=== PATIENT | male | born 1995 | race Caucasian/White ===

== ENCOUNTER 2024-05-29 09:40 | Emergency (ER) | payer OTHER, SELFPAY ==
[2024-05-29 09:40] VITALS: BP 146/83; PULSE 95; RESP 16; TEMP 36.7; O2SAT 97; BMI 28.1
--- NOTE | 2024-05-29 10:05 | EX.ED.GENINJ ---
HPI History of Present Illness Chief Complaint: Head Injury Detail of Chief Complaint: Seizure that fell with a forehead laceration. Informant: patient and parent Onset/Context/Timing Onset: Today and Hours Mechanism/Context: Blunt Injury and Fall Current Severity: Mild Maximum Severity: Mild Associated Symptoms Associated Symptoms: Negative for Parasthesias, Weakness, Loss of function or Inability to ambulate Length of loss of consciousness: No LOC. Narrative Narrative: 29-year-old [facility] male history of seizures or since he was a child. Currently takes Depakote twice a day and Lamictal twice a day. Had a seizure last night around midnight fell and struck his head on the linoleum floor causing about a 5 inch forehead laceration along the midline. He is back to his baseline. Mom thought it need to be so brought him in today. He does not get vaccinated his tetanus is not up-to-date. She does not want him vaccinated. No recent illness. No nausea or vomiting. Mom states he is at his baseline. Tetanus Immunization: >10 years Prior similar symptoms: Yes Recent Illness/Hospitalization: No [facility] Medical History (Updated 05/29/24 @ 11:[address] Diego Ward MD) Seizure Home Medications ?Medication ?Instructions ?Recorded ?Last Taken ?Type divalproex 500 mg tablet,extended 1,000 mg PO BID 05/29/24 Unknown History release 24 hr lamotrigine 25 mg tablet 50 mg PO Q12H 05/29/24 Unknown History Allergy/AdvReac Type Severity Reaction Status Date / Time phenytoin (From Dilantin) Allergy Intermediate Rash Verified 05/29/24 09:42 Social History Smoking Status: Never smoker ROS ROS ED ROS Narrative Denies recent illness. Constitutional Constitutional ED: Denies chills Eyes Eyes: Denies blurry vision ENT ENT ED: Denies ear pain Cardiovascular Cardiovascular: Denies chest pain Respiratory/Chest Respiratory/Chest: Denies cough or dyspnea Gastrointestinal Gastrointestinal: Denies abdominal pain Genitourinary Genitourinary ED: Denies dysuria or hematuria Musculoskeletal Musculoskeletal: Denies arthralgias or back pain Integumentary Denies abscess Neurologic Neurologic: Denies headache(s) Psychiatric Psychiatric: Denies anxiety or depression Endocrine Endocrinology: Denies cold intolerance Hematologic/Lymphatic Hematologic/Lymphatic: Denies easy bleeding Allergic/Immunologic Allergic/Immunologic ED: Denies mouth swelling EXAM Physical Exam Narrative Exam Narrative: Well-appearing 29-year-old male. Vital signs stable afebrile. H EENT exam is round reactive light. There is no hematoma or tenderness to his scalp. There is a 5 to 6 inch irregular laceration down the mid portion of his forehead. Currently there is no active bleeding. Involves the skin and subcu tissue. There is no signs of infection. This is about a 10-hour old wound. It was round reactive light. No facial tenderness. Neck nontender. Lungs clear to auscultation bilaterally. Heart regular rhythm no murmur rate in 90s. Chest wall and ribs nontender. Abdomen soft nontender. Back nontender. Pelvic girdle intact. Moving all 4 extremities. Normal range of motion. Nontender. No deformity. 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 Normal dorsi plantarflexion. Back nontender. Neurologically is awake and alert. Answering questions and following commands. GCS is 15. Const Vital Signs: 05/29/24 09:40 05/29/24 10:12 Temperature 98.0 F Temperature Source Temporal Pulse Rate 95 Respiratory Rate 16 Respiratory Effort Normal Non-Labored Respiratory Depth Normal Respiratory Pattern Normal Blood Pressure 146/83 H Blood Pressure Mean 104 Pulse Ox 97 Oxygen Delivery Method Room Air Positive well nourished and well developed; Negative for obese, cachectic, contractures or unkempt General Appearance ED: well developed and NAD; Negative for unkempt, cachectic or contractures Nutritional Appearance: Negative for cachectic or obese HEENT HEENT Narrative: Mid forehead linear laceration irregular on the midportion of his forehead approximately 5 to 6 inches in length. Will need repaired. Currently no active bleeding. No signs of infection or foreign body. Involves the skin and subcu tissue down the almost the skull. trauma; Negative for atraumatic Eyes PERRL and EOMs intact bilaterally Neck full ROM General: Negative for tenderness Chest Wall inspection of chest normal and palpation of chest normal Breast/Axilla Inspection: Negative for other Resp normal respiratory effort and clear to auscultation bilaterally Effort and Inspection: Negative for pain with movement Auscultation: Negative for rales, rhonchi, wheezes or diminished lung sounds Cardio regular rhythm, S1 normal heart sound, S2 normal heart sound and no murmurs Jugular Venous Distention: Negative for other Rate: regular rate GI normal to inspection, nondistended, normoactive bowel sounds, non-tender, non-distended and no masses Inspection: Negative for abdominal distention Auscultation: normoactive bowel sounds Palpation: soft; Negative for tender, guarding or rebound tenderness present Back/Spine normal to inspection and no thoracic nor lumbar tenderness General Back: Negative for CVA tenderness Thoracic Spine / Upper Back: Negative for thoracic spinal tenderness Extremity normal to inspection and full ROM General Extremety ED: Negative for deformity, edema or tenderness General Extremity: Negative for deformity or edema Neuro CN's II-XII intact bilaterally, moves all extremities, no focal motor deficits and no sensory deficits noted Low Coma Scale: document GCS findings Spontaneous Obeys Commands Oriented 15 Sensorium / Orientation: alert, oriented to person and oriented to place Motor Exam: strength 5/5 throughout Psych mental status grossly normal and thought process normal Appearance: Negative for unkempt Attitude: No agitated Mood & Affect: Negative for depressed, anxious or tearful Skin no rashes or lesions noted, No no wounds, skin turgor normal and no jaundice Skin Narrative: Forehead laceration. Rashes: No rashes noted PROC Procedures Lacerations Mid forehead laceration repair:: Length: 6 in Depth: Sub Q Shape: Linear Prep: Shure-Clens Laceration repair: Irrigated, Lidocaine, Local and Skin sutures Number of Sutures/Dellroy: 12 Suture Information: Ethilon, Simple and 5-0 MDM MDM MDM Narrative Medical decision making narrative: 29-year-old [facility] male not vaccinated. Mom does not want a tetanus given. Has a 5 to 6 inch linear laceration mid forehead from a seizure and fall last night. This will be repaired. Mom is comfortable with suture repair. It will be locally anesthetized with let and lidocaine. Cleaned, washed with saline and explored. Closed using simple Ethilon sutures. Brief exam patient doing well at 11:50 AM. I was able to clean, irrigate, explore suture repair for laceration. 12 simple interrupted 5-0 Ethilon sutures. Mom was instructed on wound care and follow-up and head injury instructions as needed. History & Record Review Discussion w/independent historian: Patient and Family Discharge Plan Triage Chief Complaint: Head Injury ED Provider: Diego Ward Dx/Rx/DC Orders Clinical Impression: Seizure, Fall, Forehead laceration, Head injury Instructions: ED Head Injury (Adult), ED Laceration, All Closures Prescriptions: No Action divalproex 500 mg tablet extended release 24 hr 1,000 mg PO BID Patient Comments: TAKE TWO TABLETS BY MOUTH TWICE DAILY lamotrigine 25 mg tablet 50 mg PO Q12H Patient Comments: GIVE TWO TABLETS BY MOUTH ONCE DAILY FOR TWO WEEKS THEN INCREASE TO TWO TABLETS TWICE DAILY Primary Care Provider: Care Physician,No Primary Referrals: NOT,DEFINED [Non-Staff] - Activity Restrictions/Additional Instructions: Clean daily gently with soap and water or peroxide and water. Dry carefully. Stitches out in 10 days. Return if severe headache, vomiting or not acting right. Apply antibiotic ointment daily. Motrin and Tylenol for pain Print Language: Korean Disposition Disposition: Home, Self Care
[2024-05-29] MEDS: Lidocaine/Epi/Tetracaine 50 ML 1 APPLIC TOPICAL (10:11)
[2024-05-29] MEDS: Lidocaine 1% (20 ml mdv) 20 ML Vial INFILT (10:11)
[2024-05-29 11:57] VITALS: BP 129/78; PULSE 89; RESP 16; O2SAT 97
== END 2024-05-29 11:58 | disposition home or self-care (01) ==
PROVIDERS: Emergency Provider Emergency Medicine; Visit Provider Emergency Medicine
DX: S01.81XA Laceration without foreign body of other part of head, initial encounter (principal); R56.9 Unspecified convulsions; W01.198A Fall on same level from slipping, tripping and stumbling with subsequent striking against other object, initial encounter; Z28.39 Other underimmunization status; Z28.82 Immunization not carried out because of caregiver refusal
CPT/HCPCS: 12016; 99283

== ENCOUNTER 2024-07-13 18:28 | Emergency (ER) | payer OTHER, SELFPAY ==
[2024-07-13] VITALS (11 sets, daily range): BP systolic 110–182; BP diastolic 64–112; PULSE 58–88; RESP 16–40; TEMP 35.9–36.6; O2SAT 71–95
--- NOTE | 2024-07-13 18:43 | RAD_ITS ---
STUDY: X-RAY CHEST REASON FOR EXAM: Male, 29 years old. intubation TECHNIQUE: AP portable COMPARISON: None. FINDINGS: Diffuse right perihilar infiltrate or unilateral pulmonary edema. There is no demonstrated pleural abnormality. Normal size heart. Normal mediastinum and tico. Normal visualized pulmonary arteries. Normal visualized aortic arch and descending thoracic aorta. Endotracheal tube noted 4.8 cm proximal to marybel Normal visualized thoracic spine. Normal visualized ribs, clavicles, and shoulders. Nasogastric tube is present in the stomach although the distal tip cannot be localized There is no demonstrated abnormality of the visualized soft tissue structures of the upper abdomen. RAD/Chest 1 View IMPRESSION: Diffuse right perihilar infiltrates or bilateral pulmonary edema Electronically Signed: Froylan Anderson MD at 19:37 EDT ,
--- NOTE | 2024-07-13 18:44 | CT_ITS ---
STUDY: CT BRAIN WITHOUT CONTRAST REASON FOR EXAM: Male, 29 years old. Unresponsive RADIATION DOSAGE (If Supplied By Facility): CTDIvol = ( 44.99 ) mGy, DLP = ( 866.41 ) mGycm TECHNIQUE: Transaxial CT imaging of the brain was performed without administration of intravenous contrast material. Individualized dose optimization techniques were used for this CT. COMPARISON: No relevant priors. FINDINGS: Mild soft tissue swelling forehead without associated acute skull fracture. Normal size ventricles and extra-axial spaces for the patient''s age. Normal white matter tracts of the cerebral hemispheres. Normal basal ganglia and thalami. Normal brainstem. Normal cerebellum. There is no intracranial hemorrhage. There are no findings of an acute ischemic infarction. Mild mucosal thickening of left maxillary and sphenoid sinuses CT/Brain/Head without Contrast IMPRESSION: Mild soft tissue swelling without skull fracture or acute intracranial bleed. Electronically Signed: Froylan Anderson MD at 20:20 EDT ,
--- NOTE | 2024-07-13 18:45 | EKG12_ITS ---
Test Reason : DYSRHYTHMIA Blood Pressure : / mmHG Vent. Rate : 073 BPM Atrial Rate : 073 BPM P-R Int : 204 ms QRS Dur : 100 ms QT Int : 400 ms P-R-T Axes : 057 071 052 degrees QTc Int : 440 ms Normal sinus rhythm Normal ECG Confirmed by Jose Daniel Cox ([id number]), editorial clerk KRUNAL BLAND ([id number]) on 07/17/2024 10:48:26 AM Referred By: Confirmed By:Jose Daniel Cox
[2024-07-13] MEDS: Propofol 10MG/Ml 1,000 MG/100 ML Bottle 6 MG CONT INF ×2 (18:47→21:45)
--- NOTE | 2024-07-13 18:47 | CT_ITS ---
We are attempting to reach an attending provider to discuss findings. An addendum with communication details will be sent when the communication is complete. STUDY: CT CERVICAL SPINE WITHOUT CONTRAST REASON FOR EXAM: Male, 29 years old. trauma RADIATION DOSAGE (If Supplied By Facility): CTDIvol = ( 28.47 ) mGy, DLP = ( 638.27 ) mGycm TECHNIQUE: High resolution transaxial imaging was performed without contrast material. Sagittal and coronal images were reconstructed. Individualized dose optimization techniques were used for this CT. COMPARISON: January 08, 2010 FINDINGS: Normal craniovertebral junction. Normal anterior atlantoaxial articulation. Normal odontoid process. Straightening of normal lordotic curvature. There appears to be fracture of the anterior inferior endplate of C4 on the right involving the anterior endplate spur demonstrating ill-defined cortical margins suggesting acute fracture best visualized on sequence #[id number] image 30 and 31 There also may be chronic posttraumatic changes involving the superior endplate of C6 C2-3: Normal endplates. Normal disc height and morphology. Normal central canal and intervertebral neuroforamina. C3-4: Normal endplates. Normal disc height and morphology. Normal central canal and intervertebral neuroforamina. C4-5: Anterior endplate spurring. Normal disc height and morphology. Normal central canal. Mild left neural foraminal stenosis secondary to bony hypertrophy C5-6: Anterior endplate spurring. Normal disc height and morphology. Normal central canal and intervertebral neuroforamina. C6-7: Narrowed disc space and minor endplate spurring. Normal central canal and intervertebral neuroforamina. C7-T1: Normal endplates. Normal disc height and morphology. Normal central canal and intervertebral neuroforamina. Normal visualized soft tissue structures. Incidental finding of patchy infiltrates in the upper lobes CT/Spine Cervical without Contras IMPRESSION: Advanced spondylosis for stated age. Suspected acute fracture of the anterior inferior endplate of C4 on the right involving the anterior endplate spur. Recommend clinical correlation and follow-up studies Electronically Signed: Froylan Anderson MD at 20:00 EDT ,
--- NOTE | 2024-07-13 19:00 | CT_ITS ---
STUDY: CT CHEST, ABDOMEN T PELVIS WITH CONTRAST REASON FOR EXAM: Male, 29 years old. Trauma RADIATION DOSAGE (If Supplied By Facility): CTDIvol = ( 28.47 ) mGy, DLP = ( 638.27 ) mGycm TECHNIQUE: Transaxial imaging was performed following intravenous administration of IV 100mL Isovue-370. Individualized dose optimization techniques were used for this CT. COMPARISON: No relevant priors. FINDINGS: CHEST Diffuse bilateral nodular infiltrates more severe on the right with more pronounced consolidation in the dependent portion of both upper lobes and lower lobes. There is no demonstrated pleural abnormality. Normal heart and pericardium. Normal mediastinum. Normal hilar regions. Normal unenhanced pulmonary arteries. Normal aorta arch and descending thoracic aorta. Dorsal spine demonstrates mild degenerative change. There is no acute fracture. ABDOMEN . Normal liver. Normal gallbladder and extrahepatic biliary system. Normal spleen. Normal pancreas. Normal bilateral adrenal glands. Normal right kidney. Normal left kidney. Nasogastric tube is seen in the stomach which demonstrates extensive retained secretions.. Normal small intestine. There is diffuse fecal retention seen throughout much of the colon. The appendix is visualized and appears normal. Normal abdominal aorta. Normal inferior vena cava. Normal retroperitoneum. Normal abdominal wall. Normal osseous structures. PELVIS Ryan catheter noted within the bladder which is incompletely distended, thick-walled and contains air likely iatrogenic Normal visualized small intestine. Normal visualized colon. There is no pelvic fluid. There is no pelvic lymphadenopathy or mass lesion. Normal visualized pelvic arteries. Normal abdominal wall. Normal osseous structures. CT/CT Chest, Abd, Pel w/Contrast IMPRESSION: Diffuse bilateral pulmonary nodular infiltrates with more pronounced consolidation in the lower lobes consistent with nonspecific ARDS Diffuse gastric distention with retained secretions containing nasogastric tube. No evidence for small bowel obstruction or other acute abnormality Electronically Signed: Froylan Anderson MD at 20:29 EDT ,
[2024-07-13 19:06] LABS: Hemoglobin 12.7 g/dL (13.0-16.5); Mean Corp Hgb Conc 30.2 g/dL (32-36); Mean Corpuscular Hgb 29.3 pg (27.0-32.0); Mean Corpuscular Volume 96.8 fL (80-94); Mean Platelet Vol. 9.8 fl (6.2-12.0); POSITIVE DIFFERENTIAL YES; Platelet Count 290 K/mm3 (150-450); RBC Distribution Width CV 13.2 % (11.6-14.6); RBC Distribution Width SD 46.3 fl (35.1-43.9); Red Blood Count 4.34 M/mm3 (4.6-6.2); White Blood Count 24.4 K/mm3 (4.4-11.0)
[2024-07-13 19:25] LABS: Alcohol, Blood (Medical)-Serum < 3.0 mg/dL
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
[2024-07-13] MEDS: Rocuronium Bromide 50 MG/5 ML Vial 90 MG IV (19:33)
[2024-07-13] MEDS: Etomidate 20 MG/10 ML Vial IV (19:33)
[2024-07-13 19:44] LABS: Mucous, Urine 0 SEEN /hpf (<or=2+); Squamous Epithelial Cells - UA 0 SEEN /hpf (0-5)
[2024-07-13] MEDS: Ipratropium/Albuterol Sulfate 3 ML AMPUL.NEB INHALATION (19:45)
[2024-07-13 19:50] LABS: Color, Urine Red (Yellow); Glucose, Dipstick Normal (Normal); Ketone-Dipstick 5 mg/dl (Negative); Leukocyte Esterase-Dipstick Negative /ul (Negative); Nitrite-Dipstick Negative (Negative); Occult Blood-Urine 250 /ul (Negative); Protein-Dipstick 500 mg/dl (Negative); Specific Gravity, Urine 1.015 (1.002-1.030); Urine Bilirubin Dipstick Negative (Negative); Urine Clarity Turbid (Clear); Urine Urobilinogen Normal (Normal)
[2024-07-13 20:00] LABS: Bacteria 1+ /hpf (None Seen); Fine Granular Cast- Urine 10-25 SEEN /lpf (0-5); Red Blood Cells-Urine 5-10 SEEN /hpf (0-5); White Blood Cells 10-25 SEEN /hpf (0-5)
[2024-07-13 20:01] LABS: Amorphous Sediment 2+
[2024-07-13 20:07] LABS: Allen Test Positive; Base Excess -8 mmol/L (-2 to +2); Bicarbonate 20.1 mmol/L (22-26); Blood Gas Specimen Type ART; Comment ACVC; Mode AC; O2 Delivery Device Adult Vent; PEEP 10; PO2 50 mmHG (75-100); RR 16; SITE L Radial; SO2 76 % (95-99); Total Carbon Dioxide 22 mmol/L
[2024-07-13 20:07] LABS: International Normalized Ratio 1.3
[2024-07-13] MEDS: fentaNYL drip 100 ML 5 MCG CONT INF (20:07)
[2024-07-13 20:08] LABS: Partial Thromboplast Time 27.3 Seconds (24.1-36.2)
[2024-07-13] MEDS: fentaNYL 100 MCG/2 ML Ampul IV (20:08)
[2024-07-13 20:13] LABS: Amphetamine Urine VISTA NEGATIVE (<1000 ng/mL); Barbiturate Urine VISTA NEGATIVE (< 200 ng/mL); Benzodiazepine Urine VISTA POSITIVE (< 200 ng/mL); Cocaine Urine VISTA NEGATIVE (< 300 ng/mL); Ecstacy Urine VISTA NEGATIVE (< 500 ng/mL); Methadone Urine VISTA NEGATIVE (< 300 ng/mL); PCP Urine VISTA NEGATIVE (< 25 ng/mL); THC Urine VISTA NEGATIVE (< 50 ng/mL); Vista UDS pH Range 3
[2024-07-13 20:18] LABS: CPK Total, Creatine Kinase 274 U/L (39-308)
[2024-07-13 20:19] LABS: ALB/GLOB Ratio 0.7 RATIO (0.9-2.4); AST(SGOT) 162 U/L (15-37); Alanine Aminotransfer ALT/SGPT 148 U/L (16-61); Albumin, Serum 2.5 g/dL (3.2-5.0); Alkaline Phosphatase 57 U/L (45-117); Anion Gap 10 (5-15); BUN 16 mg/dL (7-18); BUN/Creat Ratio 12.9 RATIO (10-20); Calcium,Total 7.8 mg/dL (8.5-10.1); Chloride 102 mmol/L (98-107); Creatinine, Serum 1.24 mg/dL (0.70-1.30); EST Glomerular Filtration Rate 73 mL/min (>60); Est Glom Filt Rate - Afr Amer 88 mL/min (>60); Estimated Creatinine Clearance 107.87 ml/min; Globulin 3.6 g/dL (2.2-4.2); Glucose 126 mg/dL (74-106); Potassium 3.4 mmol/L (3.5-5.1); Protein, Total 6.1 g/dL (6.4-8.2); Sodium Level 136 mmol/L (136-145); Troponin-I HS (w/2H Reflex) 67 pg/mL (3.0-78.0)
[2024-07-13 20:25] LABS: Triglycerides 245 mg/dL
[2024-07-13 20:30] LABS: Differential Indicated MANUAL DIFF
[2024-07-13 20:32] LABS: Differential Comment MANUAL
[2024-07-13 20:37] LABS: Lymphocyte 58 % (19-41); Metamyelocyte 4 % (0-1); Monocyte 5 % (0-10); Neutrophil-Band 10 % (0-5); Neutrophil-Segmented 21 % (47-70); Promyelocyte 2 % (0-0); Total Cells Counted 100 (MANUAL DIFF)
[2024-07-13 20:38] LABS: Atypical Lymphocyte 1+ %; Reactive Lymphocyte 2+
[2024-07-13 20:40] LABS: Platelet Estimate ADEQUATE (ADEQ)
[2024-07-13 20:41] LABS: Red Cell Morphology NORM C+C NORMAL (NORM C&C)
--- NOTE | 2024-07-13 20:41 | CPS ---
[2000] Critical ABG results read to Dr. Grider in ER. pH=7.195 CO2=52.0 HCO3-=20.1
[2024-07-13 20:42] LABS: Absolute Lymphocyte Count 14.15 X10^3/uL (0.83-4.51); Absolute Neutrophil Count 7.6 X10^3/uL (2.0-7.7)
[2024-07-13] MEDS: Ampicillin/Sulbactam 3 GM in 0.9% Normal Saline (100mL MB+) 100 ML IV (21:17)
[2024-07-13 21:53] LABS: Reflex Troponin-HS? (from REC) Y
[2024-07-13 23:00] LABS: Reflex Lactate? Y
[2024-07-14 14:01] LABS: Pathologist Review Reviewed
== END 2024-07-13 21:55 | disposition short-term general hospital (02) ==
LOC: ED 19:11
PROVIDERS: Emergency Provider Surgery; Visit Provider Surgery
DX: T75.1XXA Unspecified effects of drowning and nonfatal submersion, initial encounter (principal); S12.300A Unspecified displaced fracture of fourth cervical vertebra, initial encounter for closed fracture; J96.01 Acute respiratory failure with hypoxia; G40.909 Epilepsy, unspecified, not intractable, without status epilepticus; N39.0 Urinary tract infection, site not specified; G93.40 Encephalopathy, unspecified; R31.0 Gross hematuria; R74.01 Elevation of levels of liver transaminase levels; E87.20 Acidosis, unspecified; Z79.899 Other long term (current) drug therapy
CPT/HCPCS: 31500; 31720; 36600; 51702; 70450; 71045; 71260; 72125; 74177; 80053; 80307; 81001; 82077; 82550; 82803; 83605; 83880; 84478; 84484; 85025; 85610; 85730; 87070; 87077; 87186; 87205; 93005; 94002; 94640; 96365; 96366; 96368; 96375; 99252; 99285; J7030; Q9967; A4216; G0463; J0295